=== PATIENT | female | born 1985 | race African-American/Black ===

== ENCOUNTER 2022-03-17 20:18 | Emergency (ER) | payer SELFPAY ==
[~2022-03-17] VITALS: Ht 154.9 cm; Wt 69.0 kg
[2022-03-18] MEDS ORDERED: LIDOCAINE HCL 1% 20ML VIAL (Pyxis) INJ INFIL ONE (01:30)
[2022-03-18] MEDS ORDERED: DOXYCYCLINE HYCLATE 100MG CAPSULE PO ONE (01:30)
[2022-03-18] MEDS ORDERED: CEFTRIAXONE SODIUM 500 MG/VIAL IM ONE (01:30)
[2022-03-18 01:59] LABS: CLARITY URINE CLEAR (CLEAR); COLOR URINE YELLOW (YELLOW); KETONES URINE TRACE (NEGATIVE); LEUKOCYTE ESTERASE URINE NEGATIVE (NEGATIVE); NITRITE URINE NEGATIVE (NEGATIVE); OCCULT BLOOD URINE 3+ (NEGATIVE); PROTEIN URINE TRACE (NEGATIVE); SPECIFIC GRAVITY URINE 1.028 (1.005-1.030)
[2022-03-18] MEDS ORDERED: ONDANSETRON 4MG ODT PO ONE (02:30)
[2022-03-18] MEDS ORDERED: DOXY100T2 MT (03:18)
[2022-03-18] MEDS ORDERED: TUSSL MT (03:18)
[2022-03-18 04:27] VITALS: BP 107/72
== END 2022-03-18 04:29 | disposition home or self-care (01) ==
LOC: ER 20:18
DX: J06.9 Acute upper respiratory infection, unspecified (principal); N89.8 Other specified noninflammatory disorders of vagina; A64 Unspecified sexually transmitted disease; R20.0 Anesthesia of skin; Z20.822 Contact with and (suspected) exposure to COVID-19
CPT/HCPCS: 71045; 81003; 81025; 87426; 93005; 96372; 99285; J0696; J3490; Q0162